=== PATIENT | female | born 2000 | race Caucasian/White ===

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

== ENCOUNTER 2019-05-19 12:23 | Emergency (ER) | payer OTHER ==
[2019-05-19 13:33] LABS: ABS Lymphocytes 1.3 10^3/ul (1.0-4.8); ABS Monocytes 0.7 10^3/ul (0-0.8); ABS Neutrophils 10.2 10^3/ul (1.5-7.7); Eosinophil % 0.3 %; Hematocrit 38 % (35-47); Hemoglobin 13.1 g/dL (12.0-16.0); Lymphocyte % 10.9 %; Mean Corpuscular HGB Conc 34 g/dL (31-36); Mean Corpuscular Hemoglobin 29 pg (27-31); Mean Corpuscular Volume 84 fL (80-97); Mean Platelet Volume 6.8 fL (7.4-10.4); Platelet Count 252 10^3/uL (150-450); Red Blood Count 4.57 10^6 /uL (3.70-4.87); Red Cell Distribution Width 13 % (10-15); White Blood Count 12.3 10^3/uL (3.5-10.8)
[2019-05-19 13:49] LABS: ALT 7 U/L (7-52); AST 11 U/L (13-39); Alkaline Phosphatase 61 U/L (34-104); Anion Gap 11 mmol/L (2-11); BUN/Creatinine Ratio 14.5 (8-20); Blood Urea Nitrogen 9 mg/dL (6-24); C Reactive Protein 15.83 mg/L (<8.01); CO2 Carbon Dioxide 23 mmol/L (22-32); Calcium 9.7 mg/dL (8.6-10.3); Chloride 101 mmol/L (101-111); EGFR African American 148.5 (>60); EGFR Non-African American 122.7 (>60); Globulin 2.5 g/dL (2-4); Glucose 82 mg/dL (70-100); Potassium 4.3 mmol/L (3.5-5.0); Sodium 135 mmol/L (135-145); Total Protein 7.5 g/dL (6.4-8.9)
--- NOTE | 2019-05-19 14:43 | ED ---
Abdominal Pain/Female - HPI Summary HPI Summary: This patient is a 19 year old F presenting to [facility] accompanied by mother with a chief complaint of constant abdominal pain since one week ago. Symptoms aggravated by nothing. Symptoms alleviated by nothing. Patient reports nausea all week, abdominal pain in right lower quadrant, and possible diarrhea. Denies fever, chills, vaginal symptoms, discharge. Reports expecting menstrual period next week. Reports that never experienced similar symptoms prior to this. Medications reviewed. Allergies noted - History of Current Complaint Chief Complaint: EDAbdPain Stated Complaint: FAINTED PER PT Time Seen by Provider: 05/19/19 14:33 Hx Obtained From: Patient Hx Last Menstrual Period: 05/04/16 Onset/Duration: Lasting Days, Still Present Timing: Constant Severity Currently: Mild Pain Intensity: 4 Pain Scale Used: 0-10 Numeric Location: Discrete At: RLQ Aggravating Factor(s): Nothing Alleviating Factor(s): Nothing Associated Signs and Symptoms: Positive: Nausea, Diarrhea, Other: - denies chills, other vaginal symptoms. Negative: Fever, Vaginal Discharge Allergies/Adverse Reactions: Allergies Allergy/AdvReac Type Severity Reaction Status Date / Time No Known Allergies Allergy Verified 05/19/19 12:28 PMH/Surg Hx/FS Hx/Imm Hx Endocrine/Hematology History: Denies: Hx Diabetes Cardiovascular History: Denies: Hx Hypertension, Hx Pacemaker/ICD Respiratory History: Denies: Hx Asthma History: Denies: Hx Renal Disease Sensory History: Denies: Hx Hearing Aid Psychiatric History: Denies: Hx Panic Disorder - Surgical History Surgery Procedure, Year, and Place: TONSILLECTOMY Infectious Disease History: No Infectious Disease History: Denies: Traveled Outside the [place] in Last 30 Days - Family History Known Family History: Positive: None - Social History Alcohol Use: None Hx Substance Use: No Substance Use Type: Reports: None Hx Tobacco Use: No Smoking Status (MU): Never Smoked Tobacco Review of Systems Negative: Fever, Chills Positive: Abdominal Pain, Diarrhea, Nausea Positive: other - vaginal symptoms . Negative: discharge All Other Systems Reviewed And Are Negative: Yes Physical Exam - Summary Physical Exam Summary: Constitutional: Well-developed, Well-nourished, Alert. (-) Distressed Skin: Warm, Dry HENT: Normocephalic; Atraumatic Eyes: Conjunctiva normal Neck: Musculoskeletal ROM normal neck. (-) JVD, (-) Stridor, (-) Tracheal deviation Cardio: Rhythm regular, rate normal, Heart sounds normal; Intact distal pulses; Radial pulses are 2+ and symmetric. (-) Murmur Pulmonary/Chest wall: Effort normal. (-) Respiratory distress, (-) Wheezes, (-) Rales Abd: tenderness in right lower quadrant, no rebound or guarding, (-) Rebound Musculoskeletal: (-) Edema Lymph: (-) Cervical adenopathy Neuro: Alert, Oriented x3 Psych: Mood and affect Normal Triage Information Reviewed: Yes Vital Signs On Initial Exam: Initial Vitals Temp Pulse Resp BP Pulse Ox 98.3 F 119 19 132/83 99 05/19/19 12:25 05/19/19 12:25 05/19/19 12:25 05/19/19 12:25 05/19/19 12:25 Vital Signs Reviewed: Yes Procedures - Sedation Patient Received Moderate/Deep Sedation with Procedure: No Diagnostics - Vital Signs Vital Signs Temp Pulse Resp BP Pulse Ox 05/19/19 14:22 99.2 F 107 18 128/85 100 05/19/19 12:25 98.3 F 119 19 132/83 99 - Laboratory Lab Results: Lab Results 05/19/19 05/19/19 05/19/19 Range/Units 13:25 13:25 13:25 WBC 12.3 H (3.5-10.8) 10^3/uL RBC 4.57 (3.70-4.87) 10^6 /uL Hgb 13.1 (12.0-16.0) g/dL Hct 38 (35-47) % MCV 84 (80-97) fL MCH 29 (27-31) pg MCHC 34 (31-36) g/dL RDW 13 (10-15) % Plt Count 252 (150-450) 10^3/uL MPV 6.8 L (7.4-10.4) fL Neut % (Auto) 82.8 % Lymph % (Auto) 10.9 % Mchenry % (Auto) 5.8 % Eos % (Auto) 0.3 % Baso % (Auto) 0.2 % Absolute Neuts (auto) 10.2 H (1.5-7.7) 10^3/ul Absolute Lymphs (auto) 1.3 (1.0-4.8) 10^3/ul Absolute Monos (auto) 0.7 (0-0.8) 10^3/ul Absolute Eos (auto) 0.0 (0-0.6) 10^3/ul Absolute Basos (auto) 0.0 (0-0.2) 10^3/ul Absolute Nucleated RBC 0.0 10^3/ul Nucleated RBC % 0.0 Sodium 135 (135-145) mmol/L Potassium 4.3 (3.5-5.0) mmol/L Chloride 101 (101-111) mmol/L Carbon Dioxide 23 (22-32) mmol/L Anion Gap 11 (2-11) mmol/L BUN 9 (6-24) mg/dL Creatinine 0.62 (0.51-0.95) mg/dL Est GFR ( Amer) 148.5 (>60) Est GFR (Non-Af Amer) 122.7 (>60) BUN/Creatinine Ratio 14.5 (8-20) Glucose 82 (70-100) mg/dL Lactic Acid 1.1 (0.5-2.0) mmol/L Calcium 9.7 (8.6-10.3) mg/dL Total Bilirubin 1.50 H (0.2-1.0) mg/dL AST 11 L (13-39) U/L ALT 7 (7-52) U/L Alkaline Phosphatase 61 (34-104) U/L C-Reactive Protein 15.83 H (<8.01) mg/L Total Protein 7.5 (6.4-8.9) g/dL Albumin 5.0 (3.2-5.2) g/dL Globulin 2.5 (2-4) g/dL Albumin/Globulin Ratio 2.0 (1-3) Lipase < 10 L (11.0-82.0) U/L Result Diagrams: 05/19/19 13:25 05/19/19 13:25 Lab Statement: Any lab studies that have been ordered have been reviewed, and results considered in the medical decision making process. - CT Abdomen/Pelvis CT CT Interpretation Completed By: Radiologist Summary of CT Findings: Per radiologist,. 1. SMALL AMOUNT OF FREE INTRAPERITONEAL FLUID, INVOLUTING RIGHT FOLLICULAR CYSTS. 2. RELATIVELY PROMINENT RIGHT PARAOVARIAN CYST CAUSING MASS EFFECT ON THE RECTUM. RECOMMEND A PELVIC ULTRASOUND FOR FURTHER EVALUATION. ED physician has reviewed this imaging report. - Ultrasound Pelvis US Ultrasound Interpretation Completed By: Radiologist Summary of Ultrasound Findings: Per radiologist,. 1. No evidence of ovarian torsion. 2. Solid-appearing mass involving the right ovary measures 3.7 x 3.1 x 2.3 cm. Finding may be neoplastic or infectious/inflammatory, close follow- up is. recommended. ED physician has reviewed this imaging report. Abdominal Pain Fem Course/Dx - Course Course Of Treatment: Patient is here with right lower quadrant pain. Patient was tender at her appendix so blood was performed. Patient had an elevated WBC count of 12.5 and an elevated CRP. Due to this a CT scan was ordered which showed a large ovarian cyst. Patient had a subsequent transvaginal ultrasound which showed a complex cyst which could be cancerous in nature. Patient was made aware of these results and given [employer] for follow-up - Diagnoses Provider Diagnoses: Complex cyst of right ovary, Right lower quadrant pain Discharge ED - Sign-Out/Discharge Documenting (check all that apply): Patient Departure - discharge - Discharge Plan Condition: Stable Disposition: HOME Patient Education Materials: Ovarian Cyst (ED) Referrals: Darian Garcia MD [Primary Care Provider] - Magdalena Chau MD [Medical Doctor] - Additional Instructions: Please follow up with Dr. Chau for further evaluation of your complex ovarian cyst Please return if you have severe abdominal pain, unexpected vaginal bleeding, any other concerning symptoms Please take Motrin 600 mg every 6 hours for pain - Billing Disposition and Condition Condition: STABLE Disposition: Home - Attestation Statements Document Initiated by Reynaldoibe: Yes Documenting Scribe: Josie Coyne Provider For Whom Ko is Documenting (Include Credential): Dr. Mike Ernandez MD Scribe Attestation: Josie Pisano scribed for Dr. Mike Ernandez MD on 05/19/19 at 2123. Scribe Documentation Reviewed: Yes Provider Attestation: The documentation as recorded by the Josie stiles accurately reflects the service I personally performed and the decisions made by me, Dr. Mike Ernandez MD Status of Scribe Document: Viewed
[2019-05-19 14:44] LABS: Urine Appearance Cloudy; Urine Bilirubin Negative (Negative); Urine Blood Negative (Negative); Urine Color Yellow; Urine Glucose Negative (Negative); Urine Ketones 2+ (Negative); Urine Nitrite Negative (Negative); Urine Protein Negative (Negative); Urine Specific Gravity 1.006 (1.010-1.030); Urine Urobilinogen Negative (Negative)
[2019-05-19] MEDS ORDERED: Iohexol 300* (CONTRAST) 10 ML SDV IV ONE (16:11)
[2019-05-19] MEDS ORDERED: Ondansetron INJ* 2 MG/ML VIAL IV ONE (17:34)
[2019-05-19 19:00] LABS: HCG Pregnancy < 0.60 mIU/mL
[2019-05-19 19:52] VITALS: BP 124/80
== END 2019-05-19 19:48 | disposition home or self-care (01) ==
LOC: ED 12:23
DX: R10.31 Right lower quadrant pain (principal); N83.291 Other ovarian cyst, right side
CPT/HCPCS: 36415; 74177; 76856; 80053; 81003; 83605; 83690; 84702; 85025; 86140; 96374; 99283; J2405; Q9967